=== PATIENT | female | born 1955 | race African-American/Black ===

== ENCOUNTER 2020-03-29 15:51 | Emergency (ER) | payer OTHER ==
[~2020-03-29] VITALS: Ht 162.6 cm; Wt 68.0 kg
[~2020-03-29 15:51] MED LIST: ADVAIR HFA 230M12 GM INH; BENADRYL25 MG; CRESTOR10 MG PO; FLEXERIL PO; LISINOPRIL10 MG PO; METFORMIN HCL500 MG PO; METOPROLOL SUCC50 MG; NEURONTIN 300300 M1 PO; NORCO 5-325 TA1 EACH PO; NORVASC10 MG PO; OXYCODONE HCL 55 MG PO; OXYCONTIN20 M1 PO; PRILOSEC40 MG PO; PROAIR HFA8.5 GM; SERTRALINE HCL50 MG PO; TUSSIONEX PENN473 ML PO; ZPAK PO
[2020-03-29 15:58] VITALS: BP 143/89
[2020-03-29 16:23] LABS: URINE BILIRUBIN NEGATIVE (Negative); URINE BLOOD 3+ (Negative); URINE COLOR YELLOW; URINE GLUCOSE-RANDOM* NEGATIVE (Negative); URINE KETONES NEGATIVE (Negative); URINE LEUKOCYTES-REFLEX 3+ (Negative); URINE NITRITE-REFLEX POSITIVE (Negative); URINE PROTEIN (DIPSTICK) 1+ (Negative); URINE SPECIFIC GRAVITY 1.025 (1.005-1.035); URINE UROBILINOGEN 0.2 E.U./dl (0.2-1.0)
[2020-03-29 16:24] LABS: URINE CLARITY CLOUDY
[2020-03-29] MEDS ORDERED: PYRIDIUM200 MG PO (16:35)
[2020-03-29] MEDS ORDERED: BACTRIM DS TAB1 EACH PO (16:35)
[2020-03-29 16:48] LABS: CASTS None Seen /LPF (None Seen); SQUAMOUS >10 Many /LPF (0-3)
[2020-03-29 16:49] LABS: BACTERIA-REFLEX >30 Many /HPF (None Seen); CRYSTALS None Seen /LPF (None Seen); URINE RBC 3-10 Few /HPF (0-2); URINE WBC-REFLEX >25 Many /HPF (0-5)
[2020-03-29 16:50] LABS: WBC CLUMPS Packed (None Seen)
== END 2020-03-29 17:10 | disposition home or self-care (01) ==
LOC: ER 15:51
PROVIDERS: Physician Assistant
DX: N39.0 Urinary tract infection, site not specified (principal); I10 Essential (primary) hypertension; E11.9 Type 2 diabetes mellitus without complications; F17.210 Nicotine dependence, cigarettes, uncomplicated; Z79.899 Other long term (current) drug therapy; Z88.1 Allergy status to other antibiotic agents; Z88.6 Allergy status to analgesic agent; Z88.0 Allergy status to penicillin

== ENCOUNTER 2020-08-01 13:57 | Emergency (ER) | payer OTHER ==
[~2020-08-01] VITALS: Ht 162.6 cm; Wt 68.0 kg
[~2020-08-01 13:57] MED LIST changes: +BACTRIM DS TAB1 EACH PO; +PYRIDIUM200 MG PO
[2020-08-01] MEDS ORDERED: MACROBID 100 M100 MG PO (14:07)
[2020-08-01] MEDS ORDERED: BUPRENORPHINE1 EAC1 TRANSDERM (14:07)
[2020-08-01] MEDS ORDERED: DICLOFENAC SOD50 M1 PO (14:47)
[2020-08-01 15:09] VITALS: BP 106/60
== END 2020-08-01 15:18 | disposition home or self-care (01) ==
LOC: ER 13:57
DX: M25.562 Pain in left knee (principal); I10 Essential (primary) hypertension; E11.40 Type 2 diabetes mellitus with diabetic neuropathy, unspecified; F17.210 Nicotine dependence, cigarettes, uncomplicated; Z88.1 Allergy status to other antibiotic agents; Z88.5 Allergy status to narcotic agent; Z88.0 Allergy status to penicillin; Z79.899 Other long term (current) drug therapy; X50.1XXA Overexertion from prolonged static or awkward postures, initial encounter; Y93.89 Activity, other specified; Y92.89 Other specified places as the place of occurrence of the external cause; Y99.9 Unspecified external cause status